=== PATIENT | male | born 1995 | race Caucasian/White ===

== ENCOUNTER 2022-08-21 07:00 | Emergency (ER) | payer BC, OTHER ==
--- NOTE | 2022-08-21 07:16 | ERPHSYRPT ---
- History of Present Illness Time Seen by Provider: 08/21/22 07:16 Source: patient, EMS, old records (From [facility] emergency department) Exam Limitations: no limitations Physician History: This is a 27-year-old white male patient who complains of some throat/neck ti ghtness. Is been present for approximately 10 days. Approximately 5 days ago patient was seen at [facility] emergency department and I reviewed those records. He was diagnosed with acute pharyngitis without strep pharyngitis. The patient does not take any medications chronically and he has no known, diagnosed medical illness. This morning, the patient was feeling more tightness in his neck/throat area. He denies chest pain. He denies shortness of breath. They contacted the ambulance service and the ambulance service brought this patient here into the emergency department. On arrival to the emergency department patient's systolic blood pressure was 157, his heart rate was 112 bpm and his room air oxygenation saturation level is 100%. Patient appears very anxious. Timing/Duration: day(s) (Approximately 10 days ago) Severity: mild Associated Symptoms: denies symptoms Allergies/Adverse Reactions: No Known Drug Allergies Allergy (Verified 08/21/22 07:03) Home Medications: No Reportable Medications [No Reported Medications] 08/21/22 [History] Travel Risk - International Travel Have you traveled outside of the country in past 3 weeks: No - Coronavirus Screening Are you exhibiting any of the following symptoms?: No Close contact with a COVID-19 positive Pt in past 14-21 Days: No - Review of Systems Constitutional: No Symptoms Eyes: No Symptoms Ears, Nose, & Throat: No Symptoms Respiratory: No Symptoms Cardiac: Palpitations Abdominal/Gastrointestinal: No Symptoms Genitourinary Symptoms: No Symptoms Musculoskeletal: No Symptoms Skin: No Symptoms Neurological: No Symptoms Psychological: No Symptoms, Anxiety Endocrine: No Symptoms Hematologic/Lymphatic: No Symptoms Immunological/Allergic: No Symptoms All Other Systems: Reviewed and Negative - Past Medical History Pertinent Past Medical History: No - Past Surgical History Past Surgical History: No - Nursing Vital Signs Nursing Vital Signs: Initial Vital Signs Pulse Rate 120 H 08/21/22 07:03 Respiratory Rate 22 08/21/22 07:03 Blood Pressure 157/89 08/21/22 07:03 O2 Sat by Pulse Oximetry 100 08/21/22 07:03 Pain Scale Pain Intensity 0 - Physical Exam General Appearance: no apparent distress, alert, anxiety Eye Exam: PERRL/EOMI, eyes nml inspection Ears, Nose, Throat Exam: normal ENT inspection, TMs normal, pharynx normal, moist mucous membranes Neck Exam: normal inspection, supple, full range of motion Respiratory Exam: normal breath sounds, lungs clear, prolonged expirations Cardiovascular Exam: tachycardia Gastrointestinal/Abdomen Exam: soft, normal bowel sounds Rectal Exam: not done Back Exam: normal inspection, normal range of motion, No CVA tenderness, No vertebral tenderness Extremity Exam: normal inspection, normal range of motion, pelvis stable Neurologic Exam: alert, oriented x 3, cooperative, 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, normal mood/affect, nml cerebellar function, nml station & gait, sensation nml Skin Exam: normal color, warm, dry Lymphatic Exam: No adenopathy SpO2 Interpretation: normal O2 Delivery: Room Air - Course Nursing assessment & vital signs reviewed: Yes EKG Interpreted by Me: RATE ([id number]), Sinus Tach, NORMAL AXIS, NORMAL INTERVALS, NORMAL QRS, Other (No acute ischemic changes) Ordered Tests: Active Orders 24 hr Category Date Time Status Clean Catch Urine Specimen STAT Care 08/21/22 07:17 Active EKG-ER Only STAT Care 08/21/22 07:17 Active NECK WO CONTRAST [CT] Stat Exams 08/21/22 07:19 Completed CBC W DIFF Stat Lab 08/21/22 07:19 Completed CMP Stat Lab 08/21/22 07:19 Completed T4 (Thyroxine) Stat Lab 08/21/22 07:19 Completed TROPONIN Q4H Lab 08/21/22 07:40 Completed TROPONIN Q4H Lab 08/21/22 11:30 Ordered TROPONIN Q4H Lab 08/21/22 15:30 Ordered TSH, 3RD Generation Stat Lab 08/21/22 07:19 Completed UA W/RFX UR CULTURE Stat Lab 08/21/22 07:19 Completed Urine Triage Profile Stat Lab 08/21/22 07:19 Completed Medication Summary Discontinued Medications Generic Name Dose Route Start Last Admin Trade Name Freq PRN Reason Stop Dose Admin Sodium Chloride 1,000 mls @ 999 mls/hr 08/21/22 07:17 08/21/22 07:53 Sodium Chloride 0.9% 1000 Ml IV 08/21/22 08:17 999 mls/hr .Q1H1M STA Administration Sodium Chloride Confirm 08/21/22 07:53 Sodium Chloride 0.9% 1000 Ml Administered 08/21/22 07:54 Dose 1,000 mls @ .[facility] Lab/Rad Data: Laboratory Result Diagrams 08/21/22 07:19 08/21/22 07:19 Laboratory Results 08/21/22 08/21/22 08/21/22 Range/Units 07:40 07:19 07:19 WBC 8.5 (4.0-10.5) x10^3/uL RBC 4.98 (4.1-5.6) x10^6/uL Hgb 14.9 (12.5-18.0) g/dL Hct 44.3 (42-50) % MCV 89.0 (78-100) fL MCH 29.9 (26-32) pg MCHC 33.6 (32-36) g/dL RDW 11.4 L (11.5-14.0) % Plt Count 328 (150-450) x10^3/uL MPV 9.8 (7.5-11.0) fL Gran % 64.5 (36.0-66.0) % Immature Gran % (Auto) 0.1 (0.00-0.4) % Nucleat RBC Rel Count 0.0 (0.00-0.1) % Eos # (Auto) 0.07 (0-0.5) x10^3/uL Immature Gran # (Auto) 0.01 (0.00-0.03) x10^3u/L Absolute Lymphs (auto) 2.09 (1.0-4.6) x10^3/uL Absolute Monos (auto) 0.78 (0.0-1.3) x10^3/uL Absolute Nucleated RBC 0.00 (0.00-0.01) x10^3u/L Lymphocytes % 24.7 (24.0-44.0) % Monocytes % 9.2 (0.0-12.0) % Eosinophils % 0.8 (0.00-5.0) % Basophils % 0.7 (0.0-0.4) % Absolute Granulocytes 5.46 (1.4-6.9) x10^3/uL Basophils # 0.06 (0-0.4) x10^3/uL Sodium 141 (137-145) mmol/L Potassium 3.8 (3.5-5.1) mmol/L Chloride 105 (98-107) mmol/L Carbon Dioxide 26 (22-30) mmol/L Anion Gap 13.7 (5-15) MEQ/L BUN 13 (9-20) mg/dL Creatinine 0.91 (0.66-1.25) mg/dL Estimated GFR > 60.0 ML/MIN Glucose 128 H (74-106) mg/dL Calcium 9.2 (8.4-10.2) mg/dL Total Bilirubin 0.70 (0.2-1.3) mg/dL AST 42 (17-59) U/L ALT 82 H (0-50) U/L Alkaline Phosphatase 59 (38-126) U/L Troponin I < 0.012 (0.000-0.034) ng/mL Serum Total Protein 7.4 (6.3-8.2) g/dL Albumin 4.3 (3.5-5.0) g/dL Thyroxine (T4) 10.2 (5.53-10.96) ug/dL TSH 3rd Generation 2.780 (0.47-4.68) mIU/L Urine Color (Yellow) Urine Appearance (Clear) Urine pH (4.6-8.0) Ur Specific [place] (1.005-1.030) Urine Protein (Negative) Urine Glucose (UA) (Negative) mg/dL Urine Ketones (Negative) Urine Blood (Negative) Urine Nitrite (Negative) Urine Bilirubin (Negative) Urine Urobilinogen (0.2) mg/dL Ur Leukocyte Esterase (Negative) U Hyaline Cast (Auto) (0-2) /LPF Urine Microscopic RBC (0-5) /HPF Urine Microscopic WBC (0-5) /HPF Ur Epithelial Cells (None Seen) /HPF Urine Bacteria (None Seen) /HPF Urine Culture Reflexed (NO) Urine Opiates Level (NEGATIVE) Ur Methadone (NEGATIVE) Urine Barbiturates (NEGATIVE) Ur Phencyclidine (PCP) (NEGATIVE) Urine Amphetamine (NEGATIVE) U Benzodiazepine Level (NEGATIVE) Urine Cocaine (NEGATIVE) Urine Marijuana (THC) (NEGATIVE) 08/21/22 08/21/22 Range/Units 07:19 07:19 WBC (4.0-10.5) x10^3/uL RBC (4.1-5.6) x10^6/uL Hgb (12.5-18.0) g/dL Hct (42-50) % MCV (78-100) fL MCH (26-32) pg MCHC (32-36) g/dL RDW (11.5-14.0) % Plt Count (150-450) x10^3/uL MPV (7.5-11.0) fL Gran % (36.0-66.0) % Immature Gran % (Auto) (0.00-0.4) % Nucleat RBC Rel Count (0.00-0.1) % Eos # (Auto) (0-0.5) x10^3/uL Immature Gran # (Auto) (0.00-0.03) x10^3u/L Absolute Lymphs (auto) (1.0-4.6) x10^3/uL Absolute Monos (auto) (0.0-1.3) x10^3/uL Absolute Nucleated RBC (0.00-0.01) x10^3u/L Lymphocytes % (24.0-44.0) % Monocytes % (0.0-12.0) % Eosinophils % (0.00-5.0) % Basophils % (0.0-0.4) % Absolute Granulocytes (1.4-6.9) x10^3/uL Basophils # (0-0.4) x10^3/uL Sodium (137-145) mmol/L Potassium (3.5-5.1) mmol/L Chloride (98-107) mmol/L Carbon Dioxide (22-30) mmol/L Anion Gap (5-15) MEQ/L BUN (9-20) mg/dL Creatinine (0.66-1.25) mg/dL Estimated GFR ML/MIN Glucose (74-106) mg/dL Calcium (8.4-10.2) mg/dL Total Bilirubin (0.2-1.3) mg/dL AST (17-59) U/L ALT (0-50) U/L Alkaline Phosphatase (38-126) U/L Troponin I (0.000-0.034) ng/mL Serum Total Protein (6.3-8.2) g/dL Albumin (3.5-5.0) g/dL Thyroxine (T4) (5.53-10.96) ug/dL TSH 3rd Generation (0.47-4.68) mIU/L Urine Color Yellow (Yellow) Urine Appearance Cloudy A (Clear) Urine pH 7.5 (4.6-8.0) Ur Specific [place] 1.025 (1.005-1.030) Urine Protein 30 (Negative) Urine Glucose (UA) Negative (Negative) mg/dL Urine Ketones Trace A (Negative) Urine Blood Negative (Negative) Urine Nitrite Negative (Negative) Urine Bilirubin Negative (Negative) Urine Urobilinogen 1.0 A (0.2) mg/dL Ur Leukocyte Esterase Negative (Negative) U Hyaline Cast (Auto) NONE SEEN (0-2) /LPF Urine Microscopic RBC 0-2 (0-5) /HPF Urine Microscopic WBC 0-2 (0-5) /HPF Ur Epithelial Cells None Seen (None Seen) /HPF Urine Bacteria None Seen (None Seen) /HPF Urine Culture Reflexed NO (NO) Urine Opiates Level NEGATIVE (NEGATIVE) Ur Methadone NEGATIVE (NEGATIVE) Urine Barbiturates NEGATIVE (NEGATIVE) Ur Phencyclidine (PCP) NEGATIVE (NEGATIVE) Urine Amphetamine NEGATIVE (NEGATIVE) U Benzodiazepine Level NEGATIVE (NEGATIVE) Urine Cocaine NEGATIVE (NEGATIVE) Urine Marijuana (THC) NEGATIVE (NEGATIVE) - Progress Progress: unchanged, re-examined Progress Note: 08/21/22 08:20 CT scan of the neck without contrast shows no significant abnormalities. 08/21/22 08:20 This patient's medical issues 1 of moderate complexity. The level of complexity and the work-up performed is based on review of the patient's past medical history, review of the emergency room visit at [facility], an outside hospital. In addition we received independent history and information from the paramedics. We also reviewed the patient's medication list and drug allergy list as well as history of present illness and physical findings on examination. The work-up performed includes a urine drug screen, urinalysis, CBC, CMP, T4, TSH and a CT scan of the neck without contrast. I reviewed the results and impression of the radiologist interpretation of the CT scan of the neck. I am awaiting the remainder of the work-up. 08/21/22 09:01 Reviewed the remainder of the work-up. There is no evidence of any acute, emergent medical issue. Patient will be discharged to home with instruction to follow-up with an outpatient provider. Counseled pt/family regarding: lab results, diagnosis, need for follow-up, rad results Medical Desision Making - Independent Historian Additional History obtained from: Mother - Diagnostic Testing Diagnostic test were ordered, analyzed, and reviewed by me: Yes Radiological Interpretation: Reviewed by me, Teleradiologist Report - Risk of complications Minimal Risk: Minimal risk of morbidity - Departure Departure Disposition: Home Clinical Impression: Neck tightness, Anxiety about health Condition: Stable Critical Care Time: No Additional Instructions: Call a primary provider today to make arranges for follow-up appointment. May return to emergency room if symptoms recur. May use [id number] Pepcid or Prilosec if you are having heartburn.
[2022-08-21] MEDS ORDERED: Sodium Chloride 0.9% 1000 ML 1,000 ML IV STA (07:17)
[2022-08-21 07:38] LABS: Absolute Neutrophil Ct (ANC) 5.46 x10^3/uL (1.4-6.9); BASOPHIL % 0.7 % (0.0-0.4); Basophil (Absolute #) 0.06 x10^3/uL (0-0.4); Eosinophil % 0.8 % (0.00-5.0); Eosinophil (Absolute #) 0.07 x10^3/uL (0-0.5); Hematocrit 44.3 % (42-50); Hemoglobin 14.9 g/dL (12.5-18.0); IMMATURE GRAN # 0.01 x10^3u/L (0.00-0.03); IMMATURE GRAN % 0.1 % (0.00-0.4); Lymphocyte (Absolute #) 2.09 x10^3/uL (1.0-4.6); Lymphocytes % 24.7 % (24.0-44.0); Mean Corpuscular Hemoglobin 29.9 pg (26-32); Mean Corpuscular Hgb Concent. 33.6 g/dL (32-36); Mean Platelet Volume 9.8 fL (7.5-11.0); Monocyte (Absolute #) 0.78 x10^3/uL (0.0-1.3); Monocytes % 9.2 % (0.0-12.0); Neutrophil % 64.5 % (36.0-66.0); Platelet Count 328 x10^3/uL (150-450); Red Blood Count 4.98 x10^6/uL (4.1-5.6); Red Cell Distribution Width 11.4 % (11.5-14.0); White Blood Count 8.5 x10^3/uL (4.0-10.5)
[2022-08-21 07:39] LABS: Appearance Cloudy (Clear); Bilirubin Negative (Negative); Blood Negative (Negative); Glucose, Urine Negative (Negative); Ketones Trace (Negative); Leukocyte Esterase Negative (Negative); Nitrite Negative (Negative); Ph 7.5 (4.6-8.0); Protein,Urine Dip 30 (Negative); Specific Gravity 1.025 (1.005-1.030)
[2022-08-21] MEDS ORDERED: Sodium Chloride 0.9% 1000 ML 1,000 ML ONE (07:53)
[2022-08-21 07:54] LABS: Bacteria None Seen /HPF (None Seen); Epithelial Cells None Seen /HPF (None Seen); Hyaline Casts NONE SEEN /LPF (0-2); RBC 0-2 /HPF (0-5); WBC 0-2 /HPF (0-5)
[2022-08-21 07:57] LABS: ADD URINE CULTURE? NO (NO)
[2022-08-21 08:00] LABS: Amphetamine,Urine NEGATIVE (NEGATIVE); Barbiturate,Urine NEGATIVE (NEGATIVE); Benzodiazepine,Urine NEGATIVE (NEGATIVE); Cocaine,Urine NEGATIVE (NEGATIVE); Methadone,Urine NEGATIVE (NEGATIVE); Opiate,Urine NEGATIVE (NEGATIVE); PCP,Urine NEGATIVE (NEGATIVE); THC,Urine NEGATIVE (NEGATIVE)
--- NOTE | 2022-08-21 08:17 | XRAY ---
CLINICAL HISTORY:neck tightness/pain COMPARISON:None; TECHNIQUES:Multiple unenhanced axial sections were acquired through neck without intravenous contrast administration. In addition, coronal and sagittal reformations was also carried out. Total DLP: 464.94mGy*cm and CTDI: 18.45 mGy; FINDINGS: Metallic dentures producing streak artifacts obscuring fine details. Normal appearing pharynx, hypopharynx and laryngeal structures. Normal epiglottis, aryepiglottic fold and pyriform sinuses on either side. Normal true and false vocal cord. The laryngeal cartilages appear unremarkable. No evidence of cartilaginous destruction was identified. Subcentimeter benign-appearing bilateral cervical lymph nodes are seen. On appropriate lung window settings, visualized lung apices are unremarkable. On appropriate bone window settings, no significant bony abnormality detected. Visualize neurocranium showing no gross abnormality in the brain parenchyma. Soft tissue opacification noted in the bilateral external auditory canal may represent wax. IMPRESSION: 1-No significant abnormality is noted. 2-No lymphadenopathy seen within neck. 3-No bony abnormality detected. Electronically Signed by: Dayan Abad MD. (08/21/2022 07:14:20 [employer])
[2022-08-21 08:44] LABS: ALBUMIN 4.3 g/dL (3.5-5.0); ALKALINE PHOSPHATASE 59 U/L (38-126); ANION GAP 13.7 MEQ/L (5-15); BLOOD UREA NITROGEN 13 mg/dL (9-20); CHLORIDE 105 mmol/L (98-107); Calcium 9.2 mg/dL (8.4-10.2); Carbon Dioxide 26 mmol/L (22-30); Creatinine 1 0.91 mg/dL (0.66-1.25); EST GLOMERULAR FILTRATION RATE > 60.0 ML/MIN; Glucose 128 mg/dL (74-106); Potassium 3.8 mmol/L (3.5-5.1); SGOT/AST 42 U/L (17-59); SGPT/ALT 82 U/L (0-50); SODIUM 141 mmol/L (137-145); T4 (Thyroxine) 10.2 ug/dL (5.53-10.96); Total Protein 7.4 g/dL (6.3-8.2)
[2022-08-21 09:19] VITALS: BP 135/68; PULSE 76; O2SAT 96
== END 2022-08-21 09:28 | disposition home or self-care (01) ==
LOC: ED 07:00
DX: F45.9 Somatoform disorder, unspecified (principal); R19.8 Other specified symptoms and signs involving the digestive system and abdomen
CPT/HCPCS: 36000; 36415; 70490; 80053; 80307; 81001; 84436; 84443; 84484; 85025; 93005; 96360; 99284